=== PATIENT | female | born 1990 | race Caucasian/White ===

== ENCOUNTER 2017-03-18 16:26 | Inpatient (IN) | payer BC ==
[2017-03-18] VITALS (26 sets, daily range): BP systolic 101–137; BP diastolic 55–771; PULSE 78–139; TEMP 98.3–99
[~2017-03-18] VITALS: Ht 162.6 cm; Wt 80.0 kg
[2017-03-18] MEDS ORDERED: PRENATAL (16:43)
[2017-03-18] MEDS ORDERED: EFFEXOR 3737.5 MG/TA PO (16:43)
[2017-03-18 17:08] LABS: BASO % 0.2 % (0.0-2.0); EOS % 0.3 % (0-4.0); GRAN # 8.2 (1.4-6.5); HEMATOCRIT 41.2 % (37.0-47.0); HEMOGLOBIN 14.4 g/dl (12.5-16.0); LYMPH # 2.8 (1.2-3.4); LYMPH % 23.1 % (20.0-51.0); MEAN CELL VOLUME 92 fl (80.0-100.0); MEAN CORPUSCULAR HEMOGLOBIN 32 pg (27.0-31.0); MEAN CORPUSCULAR HGB CONC 35 g/dl (33.0-37.0); MONO % 7.9 % (1.7-9.3); PLATELET COUNT 221 K/mm3 (130-400); RED BLOOD COUNT 4.46 M/mm3 (4.10-5.30); REDCELL DISTRIBUTION WIDTH-CV 14.5 % (11.5-14.5)
[2017-03-18] MEDS ORDERED: NATURAL IRON65 MG PO (23:11)
[2017-03-19] VITALS (20 sets, daily range): BP systolic 88–136; BP diastolic 47–80; PULSE 85–137; TEMP 97.4–98.8
[2017-03-20 06:39] LABS: HEMATOCRIT 35.8 % (37.0-47.0); HEMOGLOBIN 12.3 g/dl (12.5-16.0)
[2017-03-20 07:10] VITALS: BP 94/66; PULSE 89; TEMP 97.8
[2017-03-20] MEDS ORDERED: IBU600 MG PO (08:54)
== END 2017-03-20 16:55 | disposition home or self-care (01) | DRG 775 ==
LOC: LDRO 16:26 → LDR 16:40 → OB 16:40
PROVIDERS: Obstetrics & Gynecology
PROC: 10E0XZZ Delivery of Products of Conception, External Approach (ICD-10-PCS; principal; 2017-03-19)
PROC: 0KQM0ZZ Repair Perineum Muscle, Open Approach (ICD-10-PCS; 2017-03-19)
DX: O48.0 Post-term pregnancy (principal); O70.1 Second degree perineal laceration during delivery; Z3A.41 41 weeks gestation of pregnancy; Z37.0 Single live birth
CPT/HCPCS: J2405; J2590; J7120